=== PATIENT | male | born 1965 | race Native Hawaiian/Other Pacific Islander ===

== ENCOUNTER 2016-08-27 08:24 | Emergency (ER) | payer BC ==
[~2016-08-27] VITALS: Ht 185.4 cm; Wt 99.8 kg
[~2016-08-27 08:24] MED LIST: MELO-13 PO; OMEP20CA PO; RANI150T78 PO
[2016-08-27 08:56] LABS: PLATELET COUNT 178 K/uL (142-355)
[2016-08-27 09:03] LABS: POTASSIUM 3.6 mmol/L (3.6-5.2); SODIUM 134 mmol/L (136-145)
[2016-08-27 09:29] LABS: PARTIAL THROMBOPLASTIN TIME 24.4 SECONDS (24.5-33.6)
[2016-08-27 10:10] VITALS: BP 132/88; TEMP 97.9
== END 2016-08-27 10:10 | disposition home or self-care (01) ==
LOC: ED 08:24
DX: K21.9 Gastro-esophageal reflux disease without esophagitis (principal)
CPT/HCPCS: 36415; 80053; 82550; 84484; 85007; 85027; 85610; 85730; 86318; 99284

== ENCOUNTER 2017-03-03 15:48 | Inpatient (IN) | payer BC ==
[~2017-03-03] VITALS: Ht 185.4 cm; Wt 108.2 kg
[2017-03-03 16:07] VITALS: BP 156/100; TEMP 98.3
[2017-03-03 18:02] LABS: PLATELET COUNT 199 K/uL (142-355)
[2017-03-03 18:09] LABS: POTASSIUM 3.9 mmol/L (3.6-5.2); SODIUM 140 mmol/L (136-145)
[2017-03-04] VITALS: BP 136/91; TEMP 98.4
[2017-03-04 03:33] VITALS: BP 136/91; TEMP 98.4; Ht 185.4 cm; Wt 108.2 kg
[2017-03-04 04:00] VITALS: BP 142/88; TEMP 98.9
[2017-03-04 12:00] VITALS: BP 111/78; TEMP 97.4
[2017-03-04 16:00] VITALS: BP 103/71; TEMP 98.4
[2017-03-04 20:00] VITALS: BP 109/65; TEMP 98.6
[2017-03-05] VITALS: BP 113/71; TEMP 100
[2017-03-05 04:00] VITALS: BP 119/73; TEMP 99.4
[2017-03-05 05:29] LABS: PLATELET COUNT 181 K/uL (142-355)
[2017-03-05 09:00] VITALS: BP 127/79; TEMP 98.8
== END 2017-03-05 11:59 | disposition home or self-care (01) | DRG 343 ==
LOC: ED 15:48 → MED/SURG 22:08
PROVIDERS: Student in an Organized Health Care Education/Training Program; ADMIT Specialist
PROC: 0DTJ4ZZ Resection of Appendix, Percutaneous Endoscopic Approach (ICD-10-PCS; principal; 2017-03-04)
DX: K35.89 Other acute appendicitis (principal); E78.00 Pure hypercholesterolemia, unspecified; N40.0 Benign prostatic hyperplasia without lower urinary tract symptoms
CPT/HCPCS: 36415; 80053; 82150; 83690; 85027; 94760; 96361; 96365; 96366; 96372; J0132; J0330; J0744; J1170; J1644; J1885; J2001; J2175; J2250; J2405; J2550; J2704; J2765; J2780; J3010; J3490; Q9963; S0028

== ENCOUNTER 2017-05-21 08:21 | Outpatient (CLI) | payer BC | END 2017-05-21 19:01 | disposition home or self-care (01) | LOC: US 08:21 | DX: N50.811 Right testicular pain (principal) ==

== ENCOUNTER 2018-05-03 12:13 | Outpatient (CLI) | payer BC | END 2018-05-03 23:05 | disposition home or self-care (01) | LOC: RAD 12:13 | DX: C62.90 Malignant neoplasm of unspecified testis, unspecified whether descended or undescended (principal) ==

== ENCOUNTER 2018-05-10 08:13 | Outpatient (CLI) | payer BC | END 2018-05-10 22:37 | disposition home or self-care (01) | LOC: CT 08:13 | DX: C62.90 Malignant neoplasm of unspecified testis, unspecified whether descended or undescended (principal) | CPT/HCPCS: 36415; 82565; 84520; Q9963 ==

== ENCOUNTER 2018-12-09 13:51 | Emergency (ER) | payer OTHER ==
[~2018-12-09] VITALS: Ht 185.4 cm; Wt 107.0 kg
[2018-12-09 13:56] VITALS: TEMP 98.5
[2018-12-09 14:43] LABS: PLATELET COUNT 185 K/uL (142-355)
[2018-12-09 15:03] LABS: POTASSIUM 3.8 mmol/L (3.6-5.2); SODIUM 138 mmol/L (136-145)
[2018-12-09 16:40] VITALS: BP 136/89
== END 2018-12-09 17:27 | disposition short-term general hospital (02) ==
LOC: ED 13:51
PROVIDERS: Emergency Medicine
DX: I20.9 Angina pectoris, unspecified (principal)
CPT/HCPCS: 36415; 80053; 82550; 83690; 83735; 83880; 84484; 85027; 93005; 99284

== ENCOUNTER 2018-12-09 17:31 | Outpatient (CLI) | payer OTHER | END 2018-12-09 18:03 | disposition short-term general hospital (02) | LOC: AMB 17:31 | DX: R07.89 Other chest pain (principal) | CPT/HCPCS: A0425; A0429 ==

== ENCOUNTER 2021-08-08 09:52 | Outpatient (CLI) | payer OTHER | END 2021-08-08 23:01 | disposition home or self-care (01) | LOC: RAD 09:52 | PROVIDERS: ATTEND Registered Nurse | DX: M25.511 Pain in right shoulder (principal) ==

== ENCOUNTER 2022-12-22 15:08 | Outpatient (CLI) | payer OTHER | END 2022-12-22 19:09 | disposition home or self-care (01) | LOC: RAD 15:08 | PROVIDERS: ATTEND Nurse Practitioner Family | DX: E55.9 Vitamin D deficiency, unspecified (principal); M06.4 Inflammatory polyarthropathy; R06.02 Shortness of breath; R06.83 Snoring; R76.0 Raised antibody titer ==